=== PATIENT | female | born 1955 | race Caucasian/White ===

== ENCOUNTER → 2024-03-04 11:11 | Outpatient (REF) | payer OTHER, SELFPAY | LOC: REG 11:11 | PROVIDERS: ATTENDING PHYSICIAN Hospitalist | DX: J06.9 Acute upper respiratory infection, unspecified (principal) | CPT/HCPCS: 71046 ==

== ENCOUNTER → 2024-03-21 07:42 | Outpatient (REF) | payer OTHER, SELFPAY | LOC: RSP 07:42 | PROVIDERS: ATTENDING PHYSICIAN Hospitalist; FAMILY PHYSICIAN Nurse Practitioner | DX: R06.2 Wheezing (principal) | CPT/HCPCS: 94727; 94729; 94010 ==

== ENCOUNTER 2024-08-16 14:13 | Emergency (ER) | payer OTHER, SELFPAY ==
[2024-08-16] VITALS (9 sets, daily range): BP systolic 105–128; BP diastolic 61–79; PULSE 57–78; BMI 24.0
[2024-08-16 14:53] LABS: % Basophils 0.8 % (0-2); % Immature Granulocytes 0.3 % (0-0.5); % Lymphocytes 30.1 % (20.5-51.1); % Monocytes 5.1 % (1.7-9.3); % Neutrophils 62.7 % (42.2-75.2); Absolute Basophils 0.1 10^3/uL (0-0.2); Absolute Eosinophils 0.1 10^3/uL (0-0.7); Absolute Lymphocytes 1.8 10^3/uL (1.2-3.4); Absolute Monocytes 0.3 10^3/uL (0.1-0.6); Absolute Neutrophils 3.7 10^3/uL (1.4-6.5); Hematocrit 37.9 % (37.0-47.0); Mean Corp Hgb Conc. 34.3 g/dL (33.0-37.0); Mean Corpuscular Hgb 28.4 pg (27.0-31.0); Mean Corpuscular Volume 82.8 fL (81.0-99.0); Mean Platelet Volume 10.9 fL (7.4-10.4); Nucleated Red Blood Cells % 0 %; Platelet Count 235 10^3/uL (130-400); Red Blood Cell Count 4.58 10^6/uL (4.20-5.40); Red Cell Dist. Width 13.9 % (11.5-14.5); White Blood Cell Count 5.9 10^3/uL (4.8-10.8)
[2024-08-16 15:06] LABS: Blood Urea Nitrogen 17 mg/dl (7-17); Glucose 90 mg/dl (70-99)
[2024-08-16 15:07] LABS: Calcium 8.5 mg/dl (8.4-10.2); Carbon Dioxide 23 mmol/L (22-30); Chloride 108 mmol/L (98-107); Estimated Creatinine Clearance 66 ml/min; Sodium 136 mmol/L (135-145); eGFR > 60.00
[2024-08-16 15:26] LABS: Troponin I 0.022 ng/ml
[2024-08-16] MEDS: NSS 1000 IV (16:01)
[2024-08-16 16:21] LABS: ALT (SGPT) 14 U/L (0-35); AST (SGOT) 24 U/L (14-36); Albumin 3.4 g/dl (3.5-5.0); Alkaline Phosphatase 58 U/L (38-126); Direct Bilirubin 0.3 mg/dl (0.0-0.4); Potassium 3.8 mmol/L (3.5-5.1); Total Bilirubin 0.8 mg/dl (0.2-1.3)
--- NOTE | 2024-08-16 16:52 | ED.GENMED ---
History of Present Illness
<Gina Jimenez PA-C - Last Filed: 08/16/24 17:07>
General
Chief Complaint: Fainting/Passed Out
Source: patient
Exam Limitations: none
Time Seen by Provider: 08/16/24 15:12
Nursing documentation reviewed up to this point in time: agreed with
History of Present Illness
History of Present Illness:
69-year-old female with no medical problems currently, former epilepsy in the remote past is a child and [facility] seizures but has not had one in years presents for syncope. Patient apparently had vasovagal syncope from noxious stimuli over the
course of her lifetime but nothing recent. She has seen cardiology Dr. [facility]os[facility] group in 2018 and had a negative stress test. Patient says today she felt fine, ate breakfast as usual, was seated at a restaurant for 5 minutes at 1 PM for lunch with
her sister who is visiting and suddenly felt lightheaded. She tried to lower herself to the ground and passed out on the way down. She had no head strike because someone caught her. She had gentle shaking but woke up within 40 seconds and was
oriented. She does have a moderate headache, global. She says the headache is actually decreased without intervention. She feels a little anxious. She is not having any chest pain, pleuritic pain, shortness of breath, recent long travel, history
of DVT or PE. She did report some mild right shoulder discomfort over the last day, started yesterday and she thought it was arthritis so she took Aleve this morning. Patient does drink a lot of tea and does not drink a lot of water otherwise.
She feels very thirsty
Past History
<Gina Jimenez PA-C - Last Filed: 08/16/24 17:07>
Past History
ED Past Medical History: None
ED Past Surgical History: and Gynecological
Social History
Tobacco: Non-smoker
Alcohol: None
Drug: None
Personal: Partner
Living: with family
Employment: Employed
Family History
Family History: Other
Review of Systems
<Gina Jimenez PA-C - Last Filed: 08/16/24 17:07>
Review of Systems
Allergies reviewed?: Yes
All Other Systems: Not applicable
Phy Exam
<Gina Jimenez PA-C - Last Filed: 08/16/24 17:07>
Physical Exam
Physical Exam:
GENERAL: Alert , in no apparent distress
EYE: pupils equal and reactive
NECK: Supple
ENT: o/p clr, mmm.
CARDIAC: Regular rate and rhythm ., No murmur
LUNGS: Clear breath sounds bilaterally, no acute respiratory distress, no wheezes/rales/rhonchi
ABDOMEN: Soft, without focal tenderness, no r/g, no cvat, normal bowel sounds
NEUROLOGICAL: Alert and oriented, no focal neuro deficits, cranial nerves intact, 5 out of 5 strength, normal sensation, ambulation steady
SKIN: Warm and dry, skin intact.
MUSCULOSKELETAL: No edema, well perfused. neg dianelys's sign
PSYCH: Normal and appropriate interaction.
Course
<Gina Jimenez PA-C - Last Filed: 08/16/24 17:07>
Orders/Labs/Results
Orders:
Orders
08/16/24 14:39
Basic Metabolic Panel Urgent
Complete Blood Count/With Diff Urgent
08/16/24 14:41
Electrocardiogram (*1) Urgent
Reason for Study: Syncope
EKG- Treatment ONCE
08/16/24 14:53
Troponin I Urgent
08/16/24 15:35
CT Head W/o Iv Contrast Urgent
Comment:
Reason For Exam: syncope, headache
08/16/24 15:39
Orthostatic VS- Treatment ONCE
0.9% Sodium Chloride 1000 ml [Nss] 1,000 ml IV BOLUS
08/16/24 15:56
LFT [[id number]] Urgent
Potassium Urgent
08/16/24 17:01
EKG- Treatment ONCE
08/16/24 17:03
Troponin I Urgent
08/16/24 18:00
Electrocardiogram (*1) Urgent
Reason for Study: Vertigo / Dizzy
Abnormal Lab Results
08/16/24 08/16/24
14:39 15:56
MPV 10.9 H fL
(7.4-10.4)
Chloride 108 H mmol/L
(98-107)
Total Protein 6.0 L g/dl
(6.3-8.2)
Albumin 3.4 L g/dl
(3.5-5.0)
08/16/24 14:39
08/16/24 15:56
Vital Signs
Initial and Last Documented VS:
Initial Vital Signs
BP
128/74
08/16/24 14:25
Last Documented Vital Signs
Temp Pulse Resp BP Pulse Ox
97.6 F 44 12 126/79 100
08/16/24 14:28 08/16/24 17:45 08/16/24 17:45 08/16/24 17:12 08/16/24 17:45
<Jesus Pettit PA-C - Last Filed: 08/16/24 20:21>
Orders/Labs/Results
Orders:
Orders
08/16/24 14:39
Basic Metabolic Panel Urgent
Complete Blood Count/With Diff Urgent
08/16/24 14:41
Electrocardiogram (*1) Urgent
Reason for Study: Syncope
EKG- Treatment ONCE
08/16/24 14:53
Troponin I Urgent
08/16/24 15:35
CT Head W/o Iv Contrast Urgent
Comment:
Reason For Exam: syncope, headache
08/16/24 15:39
Orthostatic VS- Treatment ONCE
0.9% Sodium Chloride 1000 ml [Nss] 1,000 ml IV BOLUS
08/16/24 15:56
LFT [[id number]] Urgent
Potassium Urgent
08/16/24 17:01
EKG- Treatment ONCE
08/16/24 17:03
Troponin I Urgent
08/16/24 18:00
Electrocardiogram (*1) Urgent
Reason for Study: Vertigo / Dizzy
Abnormal Lab Results
08/16/24 08/16/24
14:39 15:56
MPV 10.9 H fL
(7.4-10.4)
Chloride 108 H mmol/L
(98-107)
Total Protein 6.0 L g/dl
(6.3-8.2)
Albumin 3.4 L g/dl
(3.5-5.0)
08/16/24 14:39
08/16/24 15:56
Vital Signs
Initial and Last Documented VS:
Initial Vital Signs
BP
128/74
08/16/24 14:25
Last Documented Vital Signs
Temp Pulse Resp BP Pulse Ox
97.6 F 44 12 126/79 100
08/16/24 14:28 08/16/24 17:45 08/16/24 17:45 08/16/24 17:12 08/16/24 17:45
<Gina Jimenez PA-C - Last Filed: 08/16/24 17:07>
MDM/Problems Addressed
MDM/Problems Addressed:
debbie groe 69 y/o F no medical problems (epilepsy as a child, no meds)
saw casie a 2018 neg stress test
syncope today whlie seated, unprovoked; had some shoulder pain starting yesterday but no ches ptain, non exertional
then was at a restaurant, seated and felt lighthead, passed out fully, woke up oriented, no obvious post ictal state; she has passed out before due to noxious stimuli but had none of that;
was emily 40s for paramedics bp stable for her low 100s-110s/60s
she feels well now
ekg is NSR 60s, nonischemic
trop 0.02
labs look reassuring
checking 2nd ekg and trop at [address] for headache
orthostatics and fluids and plan to reassess
i did talk with dr. keene about getting holter; she said it could have been vasovagal form the lightheadedness/emily
and not nec cardiac
offered holter
d/w pt who declined because she doesn't want to have driving restrictions
she feels well and would like to be discharged home
pending ct, trop she can be d/c home with close cards f/u.
<Jesus Pettit PA-C - Last Filed: 08/16/24 20:21>
*Critical Care Note
Total Time (30-74mins, 75-104mins- exclusive of procedures): Not Applicable
<Jesus Pettit PA-C - Last Filed: 08/16/24 20:21>
Patient Management
Escalation/DeEscalation of care consider admission/obs:
Patient received in signout pending CT scan results and repeat troponin. Patient's head CT is negative for any acute pathology. Patient's troponin remains within normal limits. She is currently symptom-free. She will follow-up with her primary
care provider and cardiology as an outpatient. Aware of return precautions to the ER.
ED Attending Note
<Gina Jimenez PA-C - Last Filed: 08/16/24 17:07>
-
Portions of this chart may have been created with voice recognition software.� Occasional wrong word or��sound alike� substitutions may have occurred due to the inherent limitations of voice recognition software.
Discharge Plan
Departure
Patient Disposition: Home (Routine Discharge)
Date of Disposition: 08/16/24
Time of Disposition: 17:46
Patient with high blood pressure during this ER visit?: No
Discharge Problem:
Syncope
Instructions: Syncope (Fainting) (DC)
Prescriptions:
No Action
azithromycin [Zithromax] 250 MG tablet
250 mg PO UD
prednisone 50 MG tablet
50 mg PO Daily Qty: 4 0RF
albuterol sulfate 8.5 GM HFA aerosol inhaler
8.5 gm IH Q4 Qty: 1 0RF
Referrals:
Yamilet Cooper MD [Family Provider, Internal Medicine]
Interventions
Interventions:
*Risk Screen - Suicide Last Done: 08/16/24 14:17
*General Assessment Last Done: 08/16/24 14:17
*Neglect/Abuse Screening Last Done: 08/16/24 14:17
*ED- Fall Risk Assessment Last Done: 08/16/24 14:17
*ED COVID-19 Vaccine History Last Done: 08/16/24 14:17
*Nursing Disposition Last Done: 08/16/24 18:02
ED- Cardiac Assessment Last Done: 08/16/24 14:29
ED- Neurological Assessment Last Done: 08/16/24 14:17
Discharge Date and Time
Discharge Date/Time: 08/16/24 18:03
Print Language: EMIRATI
[2024-08-16 17:40] LABS: Troponin I 0.024 ng/ml
== END 2024-08-16 18:03 | disposition home or self-care (01) ==
LOC: EMR 14:13
PROVIDERS: Physician Assistant; Physician Assistant Medical; Student in an Organized Health Care Education/Training Program; EMERGENCY PHYSICIAN Emergency Medicine; FAMILY PHYSICIAN Internal Medicine
DX: R55 Syncope and collapse (principal)
CPT/HCPCS: 99285; 96360; 70450; 80048; 80076; 84132; 84484; 85025; 93005

== ENCOUNTER → 2024-09-04 15:02 | Outpatient (REF) | payer OTHER, SELFPAY | LOC: HWRCS 15:02 | PROVIDERS: ATTENDING PHYSICIAN Nurse Practitioner; FAMILY PHYSICIAN Internal Medicine; REFERRING PHYSICIAN Internal Medicine Cardiovascular Disease | DX: R55 Syncope and collapse (principal); R00.1 Bradycardia, unspecified | CPT/HCPCS: 93306 ==

== ENCOUNTER → 2024-09-23 07:00 | Outpatient (REF) | payer OTHER, SELFPAY ==
[2024-09-23] MEDS: AMINOPHYLLINE 75 MG IV (08:58)
[2024-09-23] MEDS: LEXISCAN 0.4 MG IV (08:58)
== END ==
LOC: RCS 07:00
PROVIDERS: ATTENDING PHYSICIAN Internal Medicine Cardiovascular Disease; FAMILY PHYSICIAN Internal Medicine
DX: R55 Syncope and collapse (principal); R00.1 Bradycardia, unspecified
CPT/HCPCS: 78452; 93017; A9500; J2785

== ENCOUNTER → 2025-03-01 08:13 | Outpatient (REF) | payer OTHER, SELFPAY ==
[2025-03-01 09:27] LABS: Hematocrit 38.5 % (37.0-47.0); Hemoglobin 12.5 g/dL (12.0-16.0); Mean Corp Hgb Conc. 32.5 g/dL (33.0-37.0); Mean Corpuscular Volume 84.8 fL (81.0-99.0); Nucleated Red Blood Cells % 0 %; Platelet Count 247 10^3/uL (130-400); Red Cell Dist. Width 13.6 % (11.5-14.5)
[2025-03-01 09:47] LABS: ALT (SGPT) 21 U/L (0-35); AST (SGOT) 25 U/L (14-36); Albumin 3.8 g/dl (3.5-5.0); Alkaline Phosphatase 73 U/L (38-126); Blood Urea Nitrogen 16 mg/dl (7-17); Calcium 8.9 mg/dl (8.4-10.2); Carbon Dioxide 25 mmol/L (22-30); Chloride 104 mmol/L (98-107); Glucose 96 mg/dl (70-99); HDL Cholesterol 61 mg/dl; LDL Cholesterol, Calculated 121 mg/dl; Potassium 4.3 mmol/L (3.5-5.1); Sodium 136 mmol/L (135-145); Total Protein 6.6 g/dl (6.3-8.2); Very Low Density Lipoprotein 11 mg/dl (0-30); eGFR > 60.00
[2025-03-01 10:14] LABS: TSH 2.60 uIU/ml (0.47-4.68)
== END ==
LOC: REG 08:13
PROVIDERS: ATTENDING PHYSICIAN Nurse Practitioner; FAMILY PHYSICIAN Internal Medicine
DX: Z00.00 Encounter for general adult medical examination without abnormal findings (principal); E78.5 Hyperlipidemia, unspecified; R53.83 Other fatigue
CPT/HCPCS: 36415; 80053; 80061; 84443; 85025